=== PATIENT | female | born 1990 | race African-American/Black ===

== ENCOUNTER 2017-04-28 09:05 | Emergency (ER) | payer SELFPAY ==
[~2017-04-28] VITALS: Ht 157.5 cm; Wt 77.0 kg
[2017-04-28] MEDS ORDERED: ACETAMINOPHEN 500MG TABLET PO ONE (10:15)
[2017-04-28 10:49] VITALS: BP 128/86
== END 2017-04-28 10:35 | disposition home or self-care (01) ==
LOC: ER 09:05
DX: J06.9 Acute upper respiratory infection, unspecified (principal); F17.200 Nicotine dependence, unspecified, uncomplicated; F12.10 Cannabis abuse, uncomplicated
CPT/HCPCS: 99282

== ENCOUNTER 2024-05-27 10:03 | Emergency (ER) | payer OTHER ==
[~2024-05-27] VITALS: Ht 157.5 cm; Wt 81.6 kg
[2024-05-27 10:16] VITALS: O2SAT 99
[2024-05-27 12:41] LABS: CLARITY URINE CLEAR (CLEAR); COLOR URINE YELLOW (YELLOW); GLUCOSE URINE NEGATIVE (NEGATIVE); KETONES URINE NEGATIVE (NEGATIVE); LEUKOCYTE ESTERASE URINE NEGATIVE (NEGATIVE); NITRITE URINE NEGATIVE (NEGATIVE); OCCULT BLOOD URINE 3+ (NEGATIVE); PH URINE 7.5 (4.5-8.0); PROTEIN URINE NEGATIVE (NEGATIVE); UROBILINOGEN URINE 0.2 E.U./dL (0.2-1.0)
[2024-05-27 13:10] LABS: SQUAMOUS EPITHELIAL CELL URINE 1+ /lpf (RARE/1+)
[2024-05-27 13:12] LABS: BACTERIA URINE 3+
[2024-05-27] MEDS: MAGNESIUM/ALUMINUM HYDROXIDE/SIMETHICONE 30ML UDC PO STA (13:17)
[2024-05-27 13:45] LABS: CHLORIDE 108 mEq/L (98-107); POTASSIUM 3.9 mEq/L (3.5-5.1); SODIUM 140 mEq/L (136-145)
[2024-05-27 13:46] LABS: CALCIUM 9.4 mg/dL (8.7-10.4); CARBON DIOXIDE 27 mEq/L (21-32)
[2024-05-27 13:48] LABS: BASOPHILS % 0.5 % (0.0-2.0); DIFFERENTIAL COMMENT 0; EOSINOPHILS % 1.1 % (0.0-5.0); HEMATOCRIT. 33.1 % (36.0-48.0); HEMOGLOBIN. 10.5 g/dL (12.0-16.0); LYMPHOCYTES % 34.6 % (20.0-50.0); MEAN CORPUSCULAR HGB CONC 31.6 g/dL (31.0-37.0); MEAN CORPUSCULAR VOLUME 85.6 fL (81.0-99.0); MEAN PLATELET VOLUME 10.6 fl (7.4-10.4); MONOCYTES % 4.2 % (2.0-8.0); NEUTROPHILS % 59.6 % (40.0-76.0); PLATELET 256 x1000/uL (130-400); RED BLOOD CELL COUNT 3.87 mill/uL (4.2-5.4); RED CELL DISTRIBUTION WIDTH 15.5 % (11.6-14.6); WHITE BLOOD COUNT 6.9 x1000/uL (4.5-11.0)
[2024-05-27 13:51] LABS: CREATININE 0.7 mg/dL (0.6-1.0); GLUCOSE 84 mg/dL (70-105); UREA NITROGEN BLOOD 6 mg/dL (9-23)
[2024-05-27 13:53] LABS: ALANINE AMINOTRANSFERASE 11 IU/L (10-49); ALBUMIN 4.4 g/dL (3.2-4.8); ASPARTATE AMINOTRANSFERASE 17 IU/L (<34); BILIRUBIN DIRECT 0.1 mg/dL (<=3.0); BILIRUBIN TOTAL 0.4 mg/dL (0.1-1.0); PROTEIN TOTAL 7.8 g/dL (6.0-8.3)
[2024-05-27 14:09] LABS: HCG SCREEN NEGATIVE
[2024-05-27] MEDS ORDERED: CEPH500C2 MT (14:30)
[2024-05-27] MEDS ORDERED: FAMO40TA70 MT (14:30)
[2024-05-27 14:38] VITALS: BP 128/79; PULSE 78; RESP 16; TEMP 36.78072; O2SAT 99
== END 2024-05-27 14:40 | disposition home or self-care (01) ==
LOC: ER 10:03
DX: N94.6 Dysmenorrhea, unspecified (principal)
CPT/HCPCS: 36415; 76705; 80048; 80076; 81003; 84703; 85025; 99284

== ENCOUNTER 2024-11-10 02:47 | Emergency (ER) | payer OTHER ==
[~2024-11-10] VITALS: Ht 162.6 cm; Wt 82.0 kg
[~2024-11-10 02:47] MED LIST: CEPH500C2 MT; FAMO40TA70 MT
[2024-11-10 03:52] VITALS: O2SAT 99
[2024-11-10] MEDS ORDERED: AMOX1TAB16 PO (05:54)
[2024-11-10] MEDS ORDERED: TOPUD PO (05:54)
[2024-11-10] MEDS: ACETAMINOPHEN 325MG TABLET PO ONE (06:11)
[2024-11-10 06:13] VITALS: BP 120/70; PULSE 81; RESP 18; TEMP 36.8; O2SAT 99
== END 2024-11-10 06:15 | disposition home or self-care (01) ==
LOC: ER 02:47
DX: K04.7 Periapical abscess without sinus (principal); F12.10 Cannabis abuse, uncomplicated; Z79.899 Other long term (current) drug therapy
CPT/HCPCS: 99283